=== PATIENT | male | born 1945 | race Caucasian/White ===

== ENCOUNTER 2018-02-08 11:45 | Emergency (ER) | payer OTHER ==
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
[2018-02-08] MEDS ORDERED: IBUPROFEN 600 MG TAB PO ONE (12:46)
[2018-02-08 13:24] VITALS: BP 119/76
== END 2018-02-08 13:24 | disposition home or self-care (01) ==
DX: S42.292A Other displaced fracture of upper end of left humerus, initial encounter for closed fracture (principal); V19.40XA Pedal cycle driver injured in collision with unspecified motor vehicles in traffic accident, initial encounter; Y93.55 Activity, bike riding; Y92.410 Unspecified street and highway as the place of occurrence of the external cause; Y99.9 Unspecified external cause status
CPT/HCPCS: 73060; 73080; 99283; A4565